=== PATIENT | male | born 1995 | race Two or more races ===

== ENCOUNTER 2023-03-16 17:27 | Emergency (ER) | payer MEDICAID, OTHER ==
[~2023-03-16] VITALS: Ht 177.8 cm; Wt 50.5 kg
[2023-03-16 19:46] LABS: Urine Bacteria MOD /hpf (None Seen); Urine Blood Negative /uL (Negative); Urine Clarity HAZY (Clear); Urine Color Colorless (Yellow); Urine Protein, UAD 1+ (Negative); Urine Specific Gravity 1.016 (1.001-1.035); Urine Urobilinogen Normal (Negative); Urine WBC 45 /hpf (0 - 3)
[2023-03-16] MEDS ORDERED: cefTRIAXone SOD 1,000 MG VL IM ONE (20:30)
[2023-03-16] MEDS ORDERED: SULF800T23 PO (20:30)
[2023-03-17 01:35] VITALS: BP 122/83; PULSE 85; RESP 16; TEMP 98.4; O2SAT 97
== END 2023-03-16 21:41 | disposition home or self-care (01) ==
LOC: ER 17:27
DX: N39.0 Urinary tract infection, site not specified (principal); F15.90 Other stimulant use, unspecified, uncomplicated; Z98.890 Other specified postprocedural states; Z79.899 Other long term (current) drug therapy
CPT/HCPCS: 81001